=== PATIENT | female | born 1990 | race Caucasian/White ===

== ENCOUNTER → 2016-07-31 | Outpatient (CLI) | payer OTHER ==
[~2016-07-31] MED LIST: BIRTH CONTROL PILL PO; CIPRO PO; CIPRO250 MG PO; CIPROFLOXACIN500 M1 PO; FLOMAX0.4 M1 PO; PERCOCET PO; PERCOCET5/325 PO; PHENERGAN25 M1 PO; VISTARIL PO; ZOFRAN PO
--- NOTE | ~2016-07-31 | CT13 ---
[facility] A Service of [facility] & [facility] RADIOLOGY TEXT RESULTS PATIENT: JOSUE MAKI LOCATION: CCAT : [birth year] UNIT #: [id number] AGE: [address]: Alice Wu MD SEX: F ORDER DR: [id number] [facility] [address] [place], [place] [address] [id number] O MR#: [id number] Acc #: [id number] NAME: JOSUE MAKI : 1990 SEX: F STUDY DATE/TIME: 07/31/2016 9:25 UNIT: [facility] ROOM: STUDY DESCRIPTION: CT Angio Abdomen Attending Physician: Alice Wu M.D. Referring Physician: Alice Wu M.D. Ordering Physician: Alice Wu M.D. Primary Care Physician: Radha Wallace A.P.R.N. MEDICAL IMAGING REPORT This report is preliminary unless electronic signature is present EXAM CT angiogram of the abdomen. INDICATIONS Nausea, weight loss, bloating, abdominal pain and diarrhea, evaluate the mesenteric arteries. TECHNIQUE CT angiogram of the abdomen was performed following the administration of IV contrast. Coronal, sagittal and 3-D reformatted images were obtained. This CT exam was performed with one or more of the following radiation dose reduction techniques: automatic exposure control, adjustment of mA and/or kV according to patient size, and iterative reconstruction. COMPARISON Comparison is made with 03/29/2016. FINDINGS Aorta is nonaneurysmal. The left gastric artery arises separately off of the aorta just superior to the celiac artery. The portion of the left hepatic artery arises directly off the left gastric artery. The celiac artery is widely patent. The superior mesenteric artery is widely patent. The renal arteries are widely patent. The inferior mesenteric artery is widely patent. The lung bases are clear. The liver, gallbladder and spleen are unremarkable. The kidneys, adrenal glands and pancreas are unremarkable. Bone windows are unremarkable. IMPRESSION Variant anatomy as described. The left gastric artery originates directly off the aorta just superior to the celiac artery. A branch of the left hepatic artery also arises from the left gastric artery. There is no STS. 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 No evidence for aneurysm. Dictated by... Kvng Grimm M.D. THIS IS AN ELECTRONICALLY VERIFIED REPORT Kvng Grimm M.D. at 08/01/2016 7:45 AM ROXANNE/hetal TD: 07/31/2016 21:21 JOB #: [id number] MEDICAL IMAGING REPORT Page 1 of 1 COPY
== END | disposition home or self-care (01) ==
LOC: CCAT 08:35
DX: R10.9 Unspecified abdominal pain (principal); R63.4 Abnormal weight loss; R11.2 Nausea with vomiting, unspecified
CPT/HCPCS: 74175; Q9967